=== PATIENT | male | born 1975 | race Caucasian/White ===

== ENCOUNTER 2020-10-23 12:56 | Outpatient (CLI) | payer OTHER ==
--- NOTE | 2020-10-23 14:34 | MRI ---
MRI UPPER EXTREMITY JOINT RIGHT WITHOUT CONTRAST: DATE: 10/23/2020 1:45 PM. INDICATION: 45-year-old male with history of nontraumatic tear of the right rotator cuff. COMPARISON: Right shoulder radiographs dated October 16, 2020, and an MR the left shoulder dated September 11, 2014 . FINDING: There is a full-thickness tear involving the supraspinatus at the footprint measuring 2 x 0.7 cm in i ts greatest AP and mediolateral dimensions respectively. There is moderate to severe tendinosis of the supraspinatus and infraspinatus. There is a full-thickness, partial width tear into the anterior infraspinatus at the footprint, best seen on image 13 of series 7 and image 7 of series 5. No muscular atrophy is evident. There is mild AC joint osteoarthrosis. There is mild fluid in the subacr omial subdeltoid bursa. The biceps tendon is located. The biceps anchor complex is intact. The superior glenoid labrum, anterior and inferior glenoid labrum are intact. There is a full-thickness t ear involving the posterior glenoid labrum, best seen on image 14 of series 4. The glenohumeral articular surface is normal-appearing. There is a 2.4 x 1.6 cm lobulated T2 hyperintense, T1 hypointe nse lesion seen within the anterior aspect of the right proximal humeral metaphysis. This lesion abuts the anterior cortex of the humerus in the region of the anterior humeral head. 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 No acute fracture is evident. No enlarged lymph nodes are present. IMPRESSION: 1. Full-thickness tear of the supraspinatus with full-thickness, partial width, full-thickness tear e xtension into the anterior infraspinatus of the footprint. 2. Moderate to severe supraspinatus and interspinous tendinosis. 3. Full-thickness tear involving the posterior right glenoid labrum. 4. Mild acromioclavicular joint osteoarthrosis. 5. Well-circumscribed lobulated T2 hyperintense, T1 hypointense cystic lesion of the proximal humeral metaphysis most suspicious for unicameral bone cyst. Transcribed Date/Time: 10/23/2020 2:47 PM
== END 2020-10-23 12:57 | disposition home or self-care (01) ==
LOC: BICMRI 12:56
PROVIDERS: ATTEND Orthopaedic Surgery
DX: M75.121 Complete rotator cuff tear or rupture of right shoulder, not specified as traumatic (principal); M19.011 Primary osteoarthritis, right shoulder; S43.491A Other sprain of right shoulder joint, initial encounter; M89.9 Disorder of bone, unspecified

== ENCOUNTER 2020-11-04 07:03 | Outpatient (CLI) | payer OTHER ==
[2020-11-04 14:29] LABS: #Basophils 0.1 10x3/uL (0.0-0.2); #Eosinphils 0.1 10x3/uL (0.0-0.5); #Monocytes 0.9 10x3/uL (0.0-1.1); #Neutrophils 6.2 10x3/uL (1.5-8.4); %Basophils 0.8 % (0.0-2.0); %Eosinophils 0.7 % (0.0-6.0); %Lymphocytes 20.8 % (18.0-47.0); %Monocytes 10.2 % (0.0-10.0); %Neutrophils 67.2 % (40.0-75.0); Hemoglobin 15.2 g/dL (14.0-18.0); Mean Corpuscular HGB CONC 33.3 G/DL (32.0-36.0); Mean Corpuscular Hemoglobin 27.3 PG (27.0-33.0); Mean Corpuscular Volume 82.2 fl (80.0-100.0); Mean Platelet Volume 9.8 fl (7.4-10.4); Platelet Count 328 10x3/uL (130-400); RBC Distribution Width 13.3 % (11.5-14.5); Red Blood Cell (RBC) Count 5.56 10x6/uL (4.40-5.80); White Blood Cell (WBC) Count 9.2 10x3/uL (4.5-11.0)
[2020-11-04 14:58] LABS: Anion Gap 14 mmol/L (10-20); BUN (Urea Nitrogen) 11 mg/dL (8.9-20.6); Calc. Creatinine Clearance 0 mL/min (70-130); Calcium 9.1 mg/dL (7.8-10.44); Carbon Dioxide 27 mmol/L (22-29); Chloride 101 mmol/L (98-107); Glucose 104 mg/dL (70-105); Potassium 3.9 mmol/L (3.5-5.1); Sodium 138 mmol/L (136-145)
[2020-11-05 07:04] LABS: SARS-CoV-2 PCR by NAA Not Detected (NotDetected)
== END 2020-11-04 07:04 | disposition home or self-care (01) ==
LOC: LABBT 07:03
PROVIDERS: ATTEND Orthopaedic Surgery
DX: Z01.812 Encounter for preprocedural laboratory examination (principal); M75.101 Unspecified rotator cuff tear or rupture of right shoulder, not specified as traumatic; Z20.822 Contact with and (suspected) exposure to COVID-19
CPT/HCPCS: 80048; 85025; 87635; U0003; U0005

== ENCOUNTER 2020-11-07 05:33 | Observation (INO) | payer OTHER ==
[2020-11-04 15:03] VITALS: BMI 32.6
[2020-11-07] MEDS ORDERED: Fentanyl 100 MCG/2 ML VIAL ONE ×5 (06:42→12:28)
[2020-11-07] MEDS ORDERED: Lidocaine 1% (PF) 30 ML VIAL ONE (06:42)
[2020-11-07] MEDS ORDERED: Midazolam HCl 2 mg/2 ml Vial ONE (06:42)
[2020-11-07] MEDS ORDERED: Sodium Chloride 0.9% 10 ML ONE (06:42)
[2020-11-07] MEDS ORDERED: Dexmedetomidine 200 MCG/2 ML VIAL ONE (07:26)
[2020-11-07] MEDS ORDERED: Fentanyl 100 MCG/2 ML VIAL SLOW IVP PRN (08:31)
[2020-11-07] MEDS ORDERED: HYDROcodone/Acetaminophen 10/325 mg Tablet PO PRN ×2 (08:45)
[2020-11-07] MEDS ORDERED: traMADol HCl 50 MG TAB PO PRN ×2 (08:45)
[2020-11-07] MEDS ORDERED: Promethazine HCl 25 MG/ML VIAL IM PRN ×2 (08:45→12:30)
[2020-11-07] MEDS ORDERED: Ropivacaine 0.2% 550 ML 550 ML NERVE BLCK SCH (08:45)
[2020-11-07] MEDS ORDERED: Zolpidem Tartrate 5 MG TAB PO PRN (08:45)
[2020-11-07] MEDS ORDERED: Ondansetron PF 4 MG/2 ML Vial IVP PRN ×2 (08:45→12:30)
[2020-11-07] MEDS ORDERED: PROPOFOL 200 MG/20 ML VIAL ONE (09:43)
[2020-11-07] MEDS ORDERED: ePHEDrine 50 MG/ML VIAL ONE (09:43)
[2020-11-07] MEDS ORDERED: Rocuronium Bromide 10 MG/ML (10ML VIAL) ONE (09:43)
[2020-11-07] MEDS ORDERED: Lidocaine 1% PF 5 ML VIAL ONE (09:43)
[2020-11-07] MEDS ORDERED: Bupivacaine PF 0.5% 30 ML VIAL ONE (09:54)
[2020-11-07] MEDS ORDERED: Morphine Sulfate 100 MG in Dextrose 5% in Water 98 ML IV SCH (12:30)
[2020-11-07] MEDS ORDERED: diphenhydrAMINE 50 MG/ML VIAL IM/IV PRN (12:30)
[2020-11-07] MEDS ORDERED: diphenhydrAMINE 25 MG CAP PO PRN (12:30)
[2020-11-07] MEDS ORDERED: Acetaminophen 500 MG TAB ONE (14:07)
--- NOTE | 2020-11-07 14:32 | OP ---
DATE OF PROCEDURE: 11/07/2020 PREOPERATIVE DIAGNOSIS: Rotator cuff tear and impingement of right shoulder with possible biceps tendinitis. POSTOPERATIVE DIAGNOSIS: Intact biceps tendon, full-thickness rotator cuff tear, and impingement syndrome. ANESTHESIA: General. BLOOD LOSS: Minimal. SPECIMEN: None. DRAINS: None. COMPLICATION: None. DESCRIPTION OF PROCEDURE: the patient was taken to the operating room, where general anesthesia was induced, placed in left lateral decubitus position. Right arm was placed in 15 pounds of traction, prepped and draped in usual sterile fashion. Scope was placed in the glenohumeral joint. Did not really have any significant osteoarthritis. The biceps tendon was in good condition. He had a full-thickness rotator cuff tear. Scope was placed in the subacromial bursa, performed bursectomy. CA ligament was taken down. Anterior and inferior acromioplasty were performed. I freshened up the greater tuberosity to denuded bone. I freshened up the margin of the rotator cuff tear. I placed 2 simple stitches in the posterior aspect of the tear just act as a Rip-Stop. Then, I placed 2 SwiveLocks with FiberTape for a medial row and passed each suture individually with a good purchase of very strong tendon and then delivered this back to a double row type repair using a self punching SwiveLock. Shoulder was then drained. Portals were closed with nylon suture. Sterile dressings applied.. Job ID: [id number]
[2020-11-07] MEDS: CEFAZOLIN 2 GM in Premix Bag 1 BAG IVPB SCH ×2 (15:00→20:44)
[2020-11-07] MEDS: Ketorolac Tromethamine 30 MG/ML VIAL IVP SCH ×2 (18:43→23:52)
[2020-11-07] MEDS: Acetaminophen 500 MG TAB PO SCH (20:43)
[2020-11-08] MEDS: Acetaminophen 500 MG TAB PO SCH ×2 (01:57→08:46)
[2020-11-08] MEDS: Ketorolac Tromethamine 30 MG/ML VIAL IVP SCH (05:03)
[2020-11-08 07:48] VITALS: BP 133/68
[2020-11-08] MEDS ORDERED: Tamsulosin HCl 0.4 MG CAP PO SCH (09:00)
[2020-11-08] MEDS ORDERED: HYDROcodone/Acetaminophen 10/325 mg Tablet PO PRN (10:42)
[2020-11-08] MEDS ORDERED: Ibuprofen 600 MG TAB PO PRN (10:43)
[2020-11-08] MEDS: HYDROcodone/Acetaminophen 10/325 mg Tablet PO PRN ×2 (11:00→15:41)
[2020-11-08 11:51] VITALS: TEMP 98.6
[2020-11-08] MEDS ORDERED: FLU VACC QS2020-21(6MOS UP)/PF 60 MCG/0.5 ML SYRINGE IM ONE (16:30)
== END 2020-11-08 16:00 | disposition home or self-care (01) ==
LOC: SDC 05:33 → SURG B 14:52
PROVIDERS: ADMIT Orthopaedic Surgery; ATTEND Orthopaedic Surgery
PROC: 0LQ10ZZ Repair Right Shoulder Tendon, Open Approach (ICD-10-PCS; principal; 2020-11-07)
PROC: 3E0T3BZ Introduction of Anesthetic Agent into Peripheral Nerves and Plexi, Percutaneous Approach (ICD-10-PCS; 2020-11-07)
DX: M75.121 Complete rotator cuff tear or rupture of right shoulder, not specified as traumatic (principal); M75.41 Impingement syndrome of right shoulder; G89.18 Other acute postprocedural pain
CPT/HCPCS: 51702; 51798; 90471; 90662; 96365; 96375; 96376; A4306; C1713; G0008; G0378; J0690; J1885; J2001; J2250; J2270; J2704; J2795; J3010; J3490; J7070; S0020